=== PATIENT | male | born 2000 | race Caucasian/White ===

== ENCOUNTER → 2021-02-22 | Outpatient (CLI) | payer BC ==
[~2021-02-22] MED LIST: BACTRIM DS TAB1 EACH PO
== END ==
LOC: RAD 10:21
DX: K40.90 Unilateral inguinal hernia, without obstruction or gangrene, not specified as recurrent (principal)

== ENCOUNTER 2021-02-25 19:35 | Emergency (ER) | payer BC ==
[~2021-02-25] VITALS: Ht 182.9 cm; Wt 87.3 kg
[2021-02-25 20:43] LABS: BASO # 0.04 K/mm3 (0.02-0.10); EOS # 0.23 K/mm3 (0.04-0.40); HEMATOCRIT 47.3 % (36.0-47.0); HEMOGLOBIN 16.3 g/dL (12.5-16.1); LYMPH# 1.87 K/mm3 (1.50-4.00); MEAN CELL VOLUME 87 fl (78-95); MEAN CORPUSCULAR HEMOGLOBIN 30 pg (26-32); MEAN CORPUSCULAR HGB CONC 35 g/dL (33-37); MEAN PLATELET VOLUME 9.5 fl (7.4-10.4); MONO # 0.42 K/mm3 (0.20-0.80); NEU # 5.04 K/mm3 (1.40-6.50); PLATELET COUNT 308 K/mm3 (130-400); RED BLOOD COUNT 5.43 M/mm3 (4.20-5.60); RED CELL DISTRIBUTION WIDTH 12.1 % (11.5-14.5); WHITE BLOOD COUNT 7.6 K/mm3 (4.8-10.8)
[2021-02-25] MEDS ORDERED: BACTRIM DS TAB1 EACH PO (20:50)
[2021-02-25 20:53] LABS: ALBUMIN 4.5 g/dL (3.5-5.0); POTASSIUM 4.2 mmol/L (3.5-5.1)
[2021-02-25 20:54] LABS: CALCIUM 9.9 mg/dL (8.3-10.5)
[2021-02-25 20:55] LABS: TOTAL PROTEIN 7.3 g/dL (6.4-8.3)
[2021-02-25 20:57] LABS: TOTAL BILIRUBIN 0.3 mg/dL (0.2-1.2)
[2021-02-25 21:10] VITALS: BP 138/82
== END 2021-02-25 21:10 | disposition home or self-care (01) ==
LOC: ED 19:35
PROVIDERS: Nurse Practitioner
DX: L73.9 Follicular disorder, unspecified (principal); R59.9 Enlarged lymph nodes, unspecified; F17.210 Nicotine dependence, cigarettes, uncomplicated

== ENCOUNTER → 2023-12-09 | Outpatient (CLI) | payer BC ==
[2023-12-09 10:45] LABS: BASO # 0.03 K/mm3 (0.02-0.10); EOS # 0.26 K/mm3 (0.04-0.40); EOS % 3.4 % (0.0-4.0); HEMATOCRIT 51.3 % (42.0-52.0); HEMOGLOBIN 17.3 g/dL (13.5-18.0); LYMPH# 1.69 K/mm3 (1.50-4.00); MEAN CELL VOLUME 87 fl (78-100); MEAN CORPUSCULAR HEMOGLOBIN 29 pg (27-31); MEAN CORPUSCULAR HGB CONC 34 g/dL (33-37); MEAN PLATELET VOLUME 9.1 fl (7.4-10.4); MONO # 0.57 K/mm3 (0.20-0.80); NEU # 5.16 K/mm3 (1.40-6.50); PLATELET COUNT 259 K/mm3 (130-400); RED BLOOD COUNT 5.91 M/mm3 (4.20-5.60); RED CELL DISTRIBUTION WIDTH 12.9 % (11.5-14.5); WHITE BLOOD COUNT 7.7 K/mm3 (4.8-10.8)
[2023-12-09 10:58] LABS: ALBUMIN 4.4 g/dL (3.5-5.0)
[2023-12-09 11:01] LABS: TOTAL PROTEIN 7.1 g/dL (6.4-8.3)
[2023-12-09 11:40] LABS: TOTAL BILIRUBIN 0.6 mg/dL (0.2-1.2)
== END ==
LOC: LAB 10:24
PROVIDERS: Nurse Practitioner Family
DX: R05.3 Chronic cough (principal); R53.83 Other fatigue